=== PATIENT | female | born 1940 | race Caucasian/White ===

== ENCOUNTER 2016-10-14 16:57 | Emergency (ER) | payer BC ==
--- NOTE | 2016-10-14 17:15 | Emergency Department Record ---
History of Present Illness - General Chief complaint: Extremity Problem Stated complaint: INJURY TO LEFT WRIST Time Seen by Provider: 10/14/16 17:08 Source: Patient, RN notes reviewed Mode of Arrival: Ambulatory - History of Present Illness Initial comments: FALL ONE HOUR AGO AND and tripped and noLOC and has only the left wrist injury. Swollen and deformed. Onset/Timin -: Hour(s) Location: Left, Other History of Same: No Radiation: Distal Severity scale (1-10): 8 Quality: Aching Consistency: Intermittent Improves with: Immobilization Worsens with: Other Associated Symptoms: Denies other symptoms - Related Data Home Medications Medication Instructions Recorded Confirmed Last Taken Amlodipine Besylate 5 mg PO DAILY 10/14/16 10/14/16 Unknown Aspirin [Aspir-Low] 81 mg PO DAILY 10/14/16 10/14/16 Unknown Atorvastatin Calcium 10 mg PO DAILY 10/14/16 10/14/16 Unknown Cholecalciferol (Vitamin D3) 2,000 unit PO DAILY 10/14/16 10/14/16 Unknown [Vitamin D3] Gluc/Javier-MSM#1/C/Gunnar/Bo/Bor 1 tab PO BID 10/14/16 10/14/16 Unknown [Osteo Bi-Flex] Ibuprofen [Motrin 200Mg] 200 mg PO Q8H PRN 10/14/16 10/14/16 Unknown Ibuprofen [Motrin] 800 mg PO Q8H PRN 10/14/16 10/14/16 Unknown Levothyroxine Sodium [Synthroid] 150 mcg PO DAILY 10/14/16 10/14/16 Unknown Lisinopril 40 mg PO DAILY 10/14/16 10/14/16 Unknown Losartan Potassium [Cozaar] 25 mg PO DAILY 10/14/16 10/14/16 Unknown Multivit-Min/FA/Lycopene/Lut 1 each PO DAILY 10/14/16 10/14/16 Unknown [Centrum Silver Tablet] Simvastatin [Zocor] 20 mg PO DAILY 10/14/16 10/14/16 Unknown Previous Rx's Medication Instructions Recorded Hydrocodone/Acetaminophen [[place] 1 tab PO Q6H PRN #20 tab 10/14/16 5mg/325mg] Allergies Allergy/AdvReac Type Severity Reaction Status Date / Time olmesartan medoxomil AdvReac Intermediate dry mouth Verified 10/14/16 17:09 [From Ross] Travel Screening - Travel/Exposure Within Last 30 Days Have you traveled within the last 30 days?: No Review of Systems Reviewed: No additional complaints except as noted below Constitutional: Reports: As per HPI. Denies: Chills, Fever, Malaise, Night sweats, Weakness, Weight change Eyes: Reports: As per HPI. Denies: Eye discharge, Eye pain, Photophobia, Vision change ENT: Reports: As per HPI. Denies: Congestion, Dental pain, Ear pain, Epistaxis , Hearing loss, Throat pain Respiratory: Reports: As per HPI. Denies: Cough, Dyspnea, Hemoptysis, Stridor, Wheezes Cardiovascular: Reports: As per HPI. Denies: Arrhythmia, Chest pain, Dyspnea on exertion, Edema, Murmurs, Orthopnea, Palpitations, Paroxysmal nocturnal dyspnea, Rheumatic Fever, Syncope Endocrine: Reports: As per HPI. Denies: Fatigue, Heat or cold intolerance, Polydipsia, Polyuria Gastrointestinal: Reports: As per HPI. Denies: Abdominal pain, Constipation, Diarrhea, Hematemesis, Hematochezia, Melena, Nausea, Vomiting Genitourinary: Reports: As per HPI. Denies: Abnormal menses, Discharge, Dyspareunia, Dysuria, Frequency, Hematuria, Incontinence, Retention, Urgency Musculoskeletal: Reports: As per HPI. Denies: Arthralgia, Back pain, Gout, Joint swelling, Myalgia, Neck pain Skin: Reports: As per HPI. Denies: Bruising, Change in color, Change in hair/ nails, Lesions, Pruritus, Rash Neurological: Reports: As per HPI. Denies: Abnormal gait, Confusion, Headache, Numbness, Paresthesias, Seizure, Tingling, Tremors, Vertigo, Weakness Psychiatric: Reports: As per HPI. Denies: Anxiety, Auditory hallucinations, Depression, Homicidal thoughts, Suicidal thoughts, Visual hallucinations Hematological/Lymphatic: Reports: As per HPI. Denies: Anemia, Blood Clots, Easy bleeding, Easy bruising, Swollen glands Past Medical History - SOCIAL HISTORY Smoking Status: Never smoker Alcohol Use: None Drug Use: None - CARDIOVASCULAR Hx Cardio Disorders: Yes Hx Hypertension: Yes - NEURO Hx Neuro Disorders: No - GI Hx GI Disorders: No - Hx Genitourinary Disorders: No - ENDOCRINE Hx Endocrine Disorders: Yes Hx Thyroid Disease: Yes - MUSCULOSKELETAL Hx Musculoskeletal Disorders: Yes Hx Arthritis: Yes Hx Osteoporosis: Yes - PSYCH Hx Psych Problems: No - HEMATOLOGY/ONCOLOGY Hx Hematology/Oncology Disorders: No Family Medical History Any Significant Family History?: No Physical Exam - General General Appearance: Alert, Oriented x3, Cooperative, No acute distress - Head Head exam: Normal inspection - Eye Eye exam: Normal appearance, PERRL Pupils: Normal accommodation - ENT ENT exam: Normal exam, Mucous membranes moist, Normal external ear exam, Normal orophraynx, TM's normal bilaterally Ear exam: Normal external inspection. negative: External canal tenderness Nasal Exam: Normal inspection. negative: Discharge, Sinus tenderness Mouth exam: Normal external inspection, Tongue normal Teeth exam: Normal inspection. negative: Dental caries Throat exam: Normal inspection. negative: Tonsillar erythema, Tonsillar exudate - Neck Neck exam: Normal inspection, Full ROM. negative: Tenderness - Respiratory Respiratory exam: Normal lung sounds bilaterally. negative: Respiratory distress - Cardiovascular Cardiovascular Exam: Regular rate, Normal rhythm, Normal heart sounds - GI/Abdominal GI/Abdominal exam: Soft, Normal bowel sounds. negative: Tenderness - Rectal Rectal exam: Deferred - exam: Deferred - Extremities Extremities exam: Normal inspection, Full ROM, Normal capillary refill, Tenderness (left wrist swollen and painful) - Back Back exam: Reports: Normal inspection, Full ROM. Denies: Muscle spasm, Rash noted, Tenderness - Neurological Neurological exam: Alert, Normal gait, Oriented X3, Reflexes normal - Psychiatric Psychiatric exam: Normal affect, Normal mood - Skin Skin exam: Dry, Intact, Normal color, Warm Course Vital Signs 10/14/16 17:02 Temperature 97.4 F L Pulse Rate 69 Respiratory 20 Rate Blood Pressure 135/73 Pulse Ox 98 OCL splint cockup style Medical Decision Making - Data Complexity MDM Data: X-Ray Ordered and/or Reviewed (distal radius fracture) Disposition Clinical Impression: Wrist fracture, left Qualifiers: Encounter type: initial encounter Fracture type: closed Qualified Code(s): S62.102A - Fracture of unspecified carpal bone, left wrist, initial encounter for closed fracture Disposition: Home, Self-Care Condition: (1) Good Instructions: Wrist Fracture in Adults (ED) Additional Instructions: follow up with Dr. Ludwig in one week Prescriptions: Hydrocodone/Acetaminophen [[place] 5mg/325mg] 1 tab PO Q6H PRN #20 tab PRN Reason: Pain - General Forms: Patient Portal Access Time of Disposition: 17:26
== END 2016-10-14 17:49 | disposition home or self-care (01) ==
LOC: ER 16:57
DX: S62.102A Fracture of unspecified carpal bone, left wrist, initial encounter for closed fracture (principal); W01.0XXA Fall on same level from slipping, tripping and stumbling without subsequent striking against object, initial encounter; Y92.007 Garden or yard of unspecified non-institutional (private) residence as the place of occurrence of the external cause; I10 Essential (primary) hypertension
CPT/HCPCS: 99283

== ENCOUNTER 2018-07-17 15:06 | Emergency (ER) | payer BC ==
[2018-07-17] MEDS ORDERED: MORPHINE SULFATE 10 MG/ML VIAL IVP ONE (16:15)
[2018-07-17] MEDS ORDERED: ONDANSETRON HCL IV 4 MG/2 ML VIAL IVP ONE (16:15)
--- NOTE | 2018-07-17 16:15 | Emergency Department Record ---
History of Present Illness - General Chief Complaint: Fall Injury Stated Complaint: FALL/RTWRIST ANKLE PAIN Time Seen by Provider: 07/17/18 16:13 Source: Patient Mode of Arrival: Wheelchair Limitations: No limitations - History of Present Illness Initial Comments: The patient is here due to a slip and fall on ice about 2 hours ago. She injured her R wrist and ankle. The patient denies any head or neck pain or injury. She also has no hip, chest or abdominal pain. MD Complaint: Fall Onset/Timin -: Minutes(s) Fall Witnessed: No Place Fall Occurred: Home - [place] Coma Scale Eye Response: (4) Open spontaneously Motor Response: (6) Obeys commands Verbal Response: (5) Oriented [place] Total: 15 - Related Data Previous Rx's Medication Instructions Recorded Hydrocodone/Acetaminophen [[place] 1 tab PO Q6H PRN #20 tab 10/14/16 5mg/325mg] Allergies Allergy/AdvReac Type Severity Reaction Status Date / Time olmesartan medoxomil AdvReac Intermediate dry mouth Verified 10/14/16 17:09 [From Ross] Travel Screening - Travel/Exposure Within Last 30 Days Have you traveled within the last 30 days?: No - Travel/Exposure Within Last Year Have you traveled outside the [place] in the last year?: No - Additonal Travel Details Have you been exposed to anyone with a communicable illness?: No - Travel Symptoms Symptom Screening: None Review of Systems Constitutional: Denies: Chills, Fever Eyes: Denies: Eye discharge ENT: Denies: Congestion Respiratory: Denies: Cough, Dyspnea Past Medical History - SOCIAL HISTORY Smoking Status: Never smoker Alcohol Use: None Drug Use: None - RESPIRATORY Hx Respiratory Disorders: No - CARDIOVASCULAR Hx Cardio Disorders: Yes Hx Hypertension: Yes - NEURO Hx Neuro Disorders: No - GI Hx GI Disorders: No - Hx Genitourinary Disorders: No - ENDOCRINE Hx Endocrine Disorders: Yes Hx Thyroid Disease: Yes - MUSCULOSKELETAL Hx Musculoskeletal Disorders: Yes Hx Arthritis: Yes Hx Osteoporosis: Yes - PSYCH Hx Psych Problems: No - HEMATOLOGY/ONCOLOGY Hx Hematology/Oncology Disorders: No Family Medical History Any Significant Family History?: No Physical Exam - General General Appearance: Alert, Oriented x3, Cooperative, No acute distress - Head Head exam: Atraumatic, Normocephalic, Normal inspection - Eye Eye exam: Normal appearance, PERRL, EOMI - Neck Neck exam: Normal inspection, Full ROM. negative: Tenderness - Respiratory Respiratory exam: Normal lung sounds bilaterally. negative: Chest wall tenderness, Respiratory distress - Cardiovascular Cardiovascular Exam: Regular rate, Normal rhythm, Normal heart sounds - GI/Abdominal GI/Abdominal exam: Soft, Normal bowel sounds. negative: Tenderness - Extremities Extremities exam: Joint swelling, Tenderness, Other (The R hand and foot are NVI.). negative: Normal inspection (There is an obvious deformity to the R wrist and ankle with signficant swelling.), Full ROM - Back Back exam: Reports: Normal inspection. Denies: Vertebral tenderness Course Vital Signs 07/17/18 15:53 Temperature 97.5 F L Pulse Rate 68 Respiratory 16 Rate Blood Pressure 144/85 Pulse Ox 99 - Reevaluation(s) Reevaluation #1: The patient is doing better at this time but I did discuss the R distal radius and ulna fx's along with the distal R fibula fx. The patient stated she would like to go to [facility] [place]. I then did discuss the case with Dr. Denise in the ER at [facility] and she does accept the patient for transfer. 07/17/18 17:51 Reevaluation #2: The patient is doing better and is ready for transfer after splinting. She also knows to be NPO. 07/17/18 17:54 Medical Decision Making - Data Complexity MDM Data: X-Ray Ordered and/or Reviewed - Radiology Data Radiology results: Report reviewed (R wrist: comminuted intra-articular distal radius and ulna fx, shortened and angulated. R ankle: nondisplaced distal fibula fx.) Disposition Disposition: Transfer Clinical Impression: Radius with ulna, distal end fracture Qualifiers: Encounter type: initial encounter Fracture type: closed Laterality: right Qualified Code(s): S52.501A - Unspecified fracture of the lower end of right radius, initial encounter for closed fracture Disposition: Acute Care Hospital Transfer Transfer To: [facility] Reason For Transfer: Orthopedics. Accepting Physician: Camelia Time Discussed w/Accepting Physician: 17:54 Condition: (2) Stable Forms: Patient Portal Access Time of Disposition: 17:54 Quality - Quality Measures Quality Measures: N/A - Blood Pressure Screening View Details: Yes Does Patient Have Any of the Following: No Blood Pressure Classification: Pre-Hypertensive BP Reading Systolic Measurement: 144 Diastolic Measurement: 85 Screening for High Blood Pressure: < Pre-Hypertensive BP, F/U Documented > [ [id number]] Pre-Hypertensive Follow-up Interventions: Referral to alternative/primary care provider.
--- NOTE | 2018-07-18 14:51 | RADIOLOGY REPORT ---
EXAM: RIGHT ANKLE, THREE VIEWS HISTORY: LATERAL ANKLE PAIN AND SWELLING POST FALL. TECHNIQUE: Three views of the right ankle were obtained. FINDINGS: There is an oblique versus spiral type fracture of the distal fibula. The disrupted medial cortex is at the level of the lateral corner of the ankle mortise joint. There , however, appears to be a more distal anterior component as seen on the lateral view. No gross displacement or angulation. The ankle mortise joint is symmetric. There is moderate lateral soft tissue swelling. No other definite fracture is seen. IMPRESSION: SPIRAL/OBLIQUE FRACTURE OF THE DISTAL FIBULA WITH DISRUPTION OF THE MEDIAL CORTEX NOTED NEAR THE LEVEL OF THE LATERAL CORNER OF THE ANKLE MORTISE THOUGH ON THE LATERAL VIEW AN ANTERIOR COMPONENT IS SUGGESTED MORE DISTALLY. NO GROSS DISPLACEMENT OR ANGULATION OF THE MAIN FRACTURE FRAGMENTS THOUGH ON THE LATERAL VIEW THERE DOES APPEAR TO BE MILD DISPLACEMENT OF AN ANTERIOR COMPONENT. THERE IS ASSOCIATED MODERATE LATERAL SOFT TISSUE SWELLING. JOB NUMBER: [id number] [facility]
--- NOTE | 2018-07-18 14:56 | RADIOLOGY REPORT ---
EXAM: RIGHT WRIST,THREE VIEWS HISTORY: PAIN, SWELLING AND DEFORMITY OF THE RIGHT WRIST POST FALL. TECHNIQUE: Three views of the right wrist were obtained. Comparison: No prior imaging of the right wrist available for comparison. Encounter: Initial. FINDINGS: There is normal bone mineralization. There is a comminuted intraarticular fracture of the distal radius with mild posterior displacement of the distal fracture fragments and mild apex anterior angulation between the proximal and distal fracture fragments. On the AP view there is mild lateral displacement of the distal lateral fragment and mild medial displacement of the distal medial fragment. A displaced ulnar styloid fracture is suspected. No other fracture is seen nor is there dislocation. There is soft tissue swelling about the fracture sites. IMPRESSION: COMMINUTED INTRAARTICULAR COMPACTED, DISPLACED AND ANGULATED FRACTURE OF THE DISTAL RADIUS. DISPLACED FRACTURE OF THE ULNAR STYLOID. ASSOCIATED SOFT TISSUE SWELLING. [facility] [id number] [facility]
== END 2018-07-17 18:18 | disposition short-term general hospital (02) ==
LOC: ER 15:06
DX: S52.571A Other intraarticular fracture of lower end of right radius, initial encounter for closed fracture (principal); S52.611A Displaced fracture of right ulna styloid process, initial encounter for closed fracture; W00.0XXA Fall on same level due to ice and snow, initial encounter; Y92.009 Unspecified place in unspecified non-institutional (private) residence as the place of occurrence of the external cause; I10 Essential (primary) hypertension
CPT/HCPCS: 29125; 29515; 99285 ×2; 96374; 96375; 73610; 73110; J2405; J2270